=== PATIENT | female | born 1935 | race Caucasian/White ===

== ENCOUNTER 2019-11-28 11:36 | Outpatient (CLI) | payer MEDICARE, OTHER, SELFPAY | END 2019-11-28 11:37 | disposition home or self-care (01) | LOC: CHSIMG 11:45 | PROVIDERS: PCP Family Medicine; Visit Provider Specialist | DX: C44.319 Basal cell carcinoma of skin of other parts of face (principal) | CPT/HCPCS: 88305 ==

== ENCOUNTER 2023-06-17 09:15 | Outpatient (CLI) | payer MEDICARE, OTHER, SELFPAY ==
--- NOTE | ~2023-06-17 | MMUS_ITS ---
EXAMINATION: MM diagnostic nicol BI w grace, US breast BI complete HISTORY: Intermittent shooting pain for a week, mostly involving right breast TECHNIQUE: ML, MLO and CC full field and spot 3-D tomosynthesis images of both breasts were performed and synthetic 2-D images were generated. CAD analysis was submitted and interpreted. High resolution complete bilateral breast ultrasound examination including all 4 quadrants and subareolar area of ea ch breast was performed. COMPARISON: None BREAST PARENCHYMAL COMPOSITION: There are scattered areas of fibroglandular density. FINDINGS: MAMMOGRAPHIC FINDINGS: Right breast: In the lower central right breast there is an approximate 2.2 cm irregular spiculated mass highly elpidio picious for malignancy. Satellite lesions are suggested extending from this mass at least 2 sites ant eromedially, with asymmetric increased irregular density in the subareolar area which may represent a dditional anterior tumor extension or separate mass lesion. There is associated inferior breast retra ction. Mildly irregular approximately 6.8 mm mass is noted in the posterior outer mid right breast. Prominent right axillary tail lymph nodes; no metastasis is not excluded. Left breast: Several scattered 7 mm and smaller nodular densities are noted, the largest situated posteriorly and relatively centrally in the mid to lower central left breast. In the upper mid right breast there is a circumscribed approximately 7 mm mass with benign appearing oval approximately 1.2 mm calcification, likely a benign fibroadenoma. No architectural distortion or retraction, skin thickening or malignant calcification of the left kedar ast is noted. ULTRASOUND: Right breast: 6:00 3 cm from nipple: Very irregular hypoechoic approximately 2.4 cm mass with internal vascularity and prominent posterior shadowing, highly suggestive of malignancy. 7:00 9 cm from nipple: Suspicious irregular hypoechoic 3.5 x 3.8 x 2.9 mm mm mass with posterior shad owing 9:00 10 cm from nipple: Suspicious irregular hypoechoic shadowing 6 x 9 x 8 mm mass with internal vas cularity 11:00 10 cm from nipple: Nonspecific 9 x 10 mm and 12 x 16 mm lymph nodes are noted Left breast: 12:00 7 cm from nipple: 6 x 4 x 4.6 mm irregular hypoechoic lesion with posterior shadowing; ultrasou nd-guided biopsy is recommended 3:00 4 cm from nipple: 4.7 x 3.7 x 3.6 mm circumscribed hypoechoic lesion with through transmission p osterior enhancement, no internal vascularity, likely benign 7:00 3 cm from nipple: 5 x 7.5 x 4.8 mm parallel circumscribed hypoechoic mass without internal vascu larity or posterior shadowing, likely benign IMPRESSION: 1. Bilateral suspicious masses including approximately 2.4 cm right breast 6:00 mass which is highly suggestive of malignancy and additional smaller suspicious right 7:00 and 9:00 and left 12:00 masses 2. Bilateral ultrasound-guided breast biopsies are recommended BI-RADS category 5, highly suggestive of malignancy; appropriate action should be taken. Dr. Ayala telephoned the report and ultrasound-guided biopsy recommendations on June 17, 2023 at 11 46 hours to MAUDE Thomas. Reviewed, dictated and finalized at location [facility]. P REMOVER IMPRESSION: 1. Bilateral suspicious masses including approximately 2.4 cm right breast 6:00 mass which is highly suggestive of malignancy and additional smaller suspiciou s right 7:00 and 9:00 and left 12:00 masses 2. Bilateral ultrasound-guided breast biopsies are recommended BI-RADS category 5, highly suggestive of malignancy; appropriate action should be taken. Dr. Ayala telephoned the report and ultrasound-guided biopsy recommendations on June 17, 2023 at 1146 hours to MAUDE Thomas. IMPRESSION: 1. Bilateral elpidio
== END 2023-06-17 09:16 | disposition home or self-care (01) ==
LOC: CHSIMG 09:24
PROVIDERS: PCP Family Medicine; Visit Provider Family Medicine
DX: N64.4 Mastodynia (principal); R92.8 Other abnormal and inconclusive findings on diagnostic imaging of breast
CPT/HCPCS: 76641; 77062; 77066; G0279